=== PATIENT | female | born 1980 | race Asian ===

== ENCOUNTER → 2017-09-22 | Outpatient (CLI) | payer OTHER ==
[~2017-09-22] MED LIST: DOCU-131 PO; HYDR1TAB12 PO; IBUP-1222 PO
== END | disposition home or self-care (01) ==
LOC: CFH 12:31
PROVIDERS: ATTEND Obstetrics & Gynecology
DX: Z15.01 Genetic susceptibility to malignant neoplasm of breast (principal); R92.2 Inconclusive mammogram; Z80.3 Family history of malignant neoplasm of breast
CPT/HCPCS: 77066

== ENCOUNTER → 2017-10-01 | Outpatient (CLI) | payer OTHER ==
[~2017-10-01] MED LIST changes: +GADOBUTROL 10 MMOL/10 ML VIAL ONE
== END ==
LOC: CFH 13:35
PROVIDERS: ATTEND Obstetrics & Gynecology
DX: Z15.01 Genetic susceptibility to malignant neoplasm of breast (principal); Z80.3 Family history of malignant neoplasm of breast
CPT/HCPCS: A9585; C8908

== ENCOUNTER 2018-09-22 07:22 | Outpatient (CLI) | payer OTHER ==
[~2018-09-22 07:22] MED LIST changes: -GADOBUTROL 10 MMOL/10 ML VIAL ONE; -HYDR1TAB12 PO; +HYDR1TAB13 PO
[2018-09-22] MEDS ORDERED: GADOBUTROL 7.5 MMOL/7.5 ML VIAL ONE ×2 (09:32→16:49)
== END 2018-09-22 23:59 | disposition home or self-care (01) ==
LOC: CFH 07:22
PROVIDERS: ATTEND Obstetrics & Gynecology
DX: N60.02 Solitary cyst of left breast (principal); N63.24 Unspecified lump in the left breast, lower inner quadrant; Z15.01 Genetic susceptibility to malignant neoplasm of breast; Z80.3 Family history of malignant neoplasm of breast
CPT/HCPCS: 77049; A9585

== ENCOUNTER 2019-04-20 07:21 | Outpatient (CLI) | payer OTHER | END 2019-04-20 23:59 | disposition home or self-care (01) | LOC: CFH 07:21 | PROVIDERS: ATTEND Obstetrics & Gynecology | DX: Z12.31 Encounter for screening mammogram for malignant neoplasm of breast (principal) | CPT/HCPCS: 76641; 77063; 77067 ==

== ENCOUNTER → 2019-10-27 | Outpatient (CLI) | payer OTHER ==
[~2019-10-27] MED LIST changes: +GADOTERATE 7.5 MMOL/15 ML VIAL ONE
== END | disposition home or self-care (01) ==
LOC: CFH 08:48
PROVIDERS: ATTEND Obstetrics & Gynecology
DX: C50.919 Malignant neoplasm of unspecified site of unspecified female breast (principal)
CPT/HCPCS: 77049; A9575; C8937; C8908

== ENCOUNTER → 2020-04-21 | Outpatient (CLI) | payer OTHER ==
[~2020-04-21] MED LIST changes: -GADOTERATE 7.5 MMOL/15 ML VIAL ONE
== END | disposition home or self-care (01) ==
LOC: CFH 07:14
PROVIDERS: ATTEND Obstetrics & Gynecology
DX: Z12.31 Encounter for screening mammogram for malignant neoplasm of breast (principal)
CPT/HCPCS: 77063; 77067

== ENCOUNTER → 2020-11-01 | Outpatient (CLI) | payer OTHER ==
[~2020-11-01] MED LIST changes: +GADOTERATE 10 MMOL/20 ML VIAL ONE
== END | disposition home or self-care (01) ==
LOC: CFH 07:23
PROVIDERS: ATTEND Obstetrics & Gynecology
DX: Z14.8 Genetic carrier of other disease (principal); Z80.3 Family history of malignant neoplasm of breast
CPT/HCPCS: 77049; A9575; C8908

== ENCOUNTER 2021-04-27 07:02 | Outpatient (CLI) | payer OTHER ==
[~2021-04-27 07:02] MED LIST changes: -GADOTERATE 10 MMOL/20 ML VIAL ONE
== END 2021-04-27 23:59 | disposition home or self-care (01) ==
LOC: CFH 07:02
PROVIDERS: ATTEND Obstetrics & Gynecology
DX: Z12.31 Encounter for screening mammogram for malignant neoplasm of breast (principal); N64.89 Other specified disorders of breast
CPT/HCPCS: 76641; 77067